=== PATIENT | female | born 1960 | race American Indian/Alaskan Native ===

== ENCOUNTER 2021-03-28 10:39 | Emergency (ER) | payer SELFPAY ==
--- NOTE | 2021-03-28 12:31 | Emergency Department Report ---
<MEDARDO SOMMER - Last Filed: 03/28/21 14:34> ED Female HPI - General Chief complaint: Abdominal Pain Stated complaint: LEFT SIDE PAIN Time Seen by Provider: 03/28/21 12:08 Source: patient Mode of arrival: Ambulatory Limitations: No Limitations - History of Present Illness Initial comments: 60-year-old -[place] female with a history of hypertension that is currently on atenolol, potassium, hydrochlorothiazide and lovastatin presents to the emergency room for 3-week history of left lower abdominal pain more towards her pelvic. Patient states that the pain comes and goes and is worse when she is getting up. She does admit to a slight smell to her urine. She does have a little bit of dysuria but denies any vaginal bleeding or blood in her urine. Patient denies any diarrhea. She has had a partial hysterectomy in 2007 and still has her ovaries. Nothing makes it better. Patient reports she does not have a primary care provider and is followed by [place] [facility]. She states that she is moving her bowels and denies any constipation or diarrhea. MD Complaint: pelvic pain Onset/Timin -: week(s) Location: LLQ Radiation: non-radiating Severity scale (0 -10): 5 Quality: aching Consistency: intermittent Improves with: none Worsens with: other (Getting up) Are you Now?: No Last Menstrual Period: 03/15/08 (Hysterectomy partial) EDC: 12/20/08 Associated Symptoms: dysuria (Slight). denies: vaginal discharge, vaginal bleeding, nausea/vomiting, fever/chills, loss of appetite, hematuria, shortness of breath - Related Data Previous Rx's Medication Instructions Recorded Last Taken Type Ciprofloxacin HCl 500 mg PO BID 7 Days #14 tablet 03/28/21 Unknown Rx Allergies Allergy/AdvReac Type Severity Reaction Status Date / Time No Known Allergies Allergy Unverified 03/28/21 10:57 ED Review of Systems Comment: All other systems reviewed and negative ED Past Medical Hx - Past Medical History Previous Medical History?: Yes Hx Hypertension: Yes - Surgical History Past Surgical History?: No - Medications Home Medications: Home Medications Medication Instructions Recorded Confirmed Last Taken Type Ciprofloxacin HCl 500 mg PO BID 7 Days #14 tablet 03/28/21 Unknown Rx ED Physical Exam - General Limitations: No Limitations General appearance: alert, in no apparent distress - Head Head exam: Present: atraumatic, normocephalic - Eye Eye exam: Present: normal appearance - ENT ENT exam: Present: normal external ear exam - Neck Neck exam: Present: normal inspection, full ROM - Respiratory Respiratory exam: Present: normal lung sounds bilaterally. Absent: respiratory distress, accessory muscle use - Cardiovascular Cardiovascular Exam: Present: regular rate, normal rhythm - GI/Abdominal GI/Abdominal exam: Present: soft, tenderness (With deep palpation to the left lower pelvic), normal bowel sounds. Absent: distended - Rectal Rectal exam: Present: deferred - Extremities Exam Extremities exam: Present: normal inspection, full ROM - Back Exam Back exam: Present: normal inspection, full ROM - Neurological Exam Neurological exam: Present: alert, oriented X3, normal gait - Psychiatric Psychiatric exam: Present: normal affect, normal mood - Skin Skin exam: Present: warm, dry, intact, normal color. Absent: rash ED Disposition Clinical Impression: Left lower quadrant abdominal pain Disposition: - TO HOME OR SELFCARE Is pt being admited?: No Does the pt Need Aspirin: No Condition: Stable Instructions: Urinary Tract Infection, Adult, [id number], Abdominal Pain (ED) Additional Instructions: Labs are stable urinalysis concern for a possible UTI. Will treat with Cipro when she to complete your antibiotics increase your fluid intake. Follow-up with a marketer as well as a [employer]. Prescriptions: Ciprofloxacin HCl 500 mg PO BID 7 Days #14 tablet Referrals: [facility] [Provider Group] - 3-5 Days [facility] [Provider Group] - 3-5 Days Forms: Work/School Release Form(ED) <GISELLE BARTH - Last Filed: 03/28/21 14:58> ED Review of Systems ROS: Stated complaint: LEFT SIDE PAIN Other details as noted in HPI ED Course Vital Signs 03/28/21 10:54 Temperature 98.3 F Pulse Rate 72 Respiratory 18 Rate Blood Pressure 177/102 [Right] O2 Sat by Pulse 96 Oximetry ED Medical Decision Making - Lab Data Result diagrams: 03/28/21 12:57 03/28/21 12:57 Vital Signs 03/28/21 10:54 Temperature 98.3 F Pulse Rate 72 Respiratory 18 Rate Blood Pressure 177/102 [Right] O2 Sat by Pulse 96 Oximetry Lab Results 0703/28/21 03/28/21 Range/Units 12:57 12:57 Unknown WBC 6.7 (4.5-11.0) K/mm3 RBC 5.77 H (3.65-5.03) M/mm3 Hgb 13.5 (10.1-14.3) gm/dl Hct 42.4 (30.3-42.9) % MCV 73 L (79-97) fl MCH 24 L (28-32) pg MCHC 32 (30-34) % RDW 14.8 (13.2-15.2) % Plt Count 189 (140-440) K/mm3 Lymph % (Auto) 31.3 (13.4-35.0) % [place] % (Auto) 4.7 (0.0-7.3) % Eos % (Auto) 1.7 (0.0-4.3) % Baso % (Auto) 0.5 (0.0-1.8) % Lymph # (Auto) 2.1 (1.2-5.4) K/mm3 [place] # (Auto) 0.3 (0.0-0.8) K/mm3 Eos # (Auto) 0.1 (0.0-0.4) K/mm3 Baso # (Auto) 0.0 (0.0-0.1) K/mm3 Seg Neutrophils % 61.8 (40.0-70.0) % Seg Neutrophils # 4.1 (1.8-7.7) K/mm3 Sodium 141 (137-145) mmol/L Potassium 4.1 (3.6-5.0) mmol/L Chloride 100.3 (98-107) mmol/L Carbon Dioxide 28 (22-30) mmol/L Anion Gap 17 mmol/L BUN 14 (7-17) mg/dL Creatinine 0.6 (0.6-1.2) mg/dL Estimated GFR > 60 ml/min BUN/Creatinine Ratio 23 % Glucose 97 (65-100) mg/dL Calcium 9.4 (8.4-10.2) mg/dL Total Bilirubin 0.30 (0.1-1.2) mg/dL AST 19 (5-40) units/L ALT 20 (7-56) units/L Alkaline Phosphatase 88 (35-129) units/L Total Protein 7.8 (6.3-8.2) g/dL Albumin 4.4 (3.9-5) g/dL Albumin/Globulin Ratio 1.3 % Lipase 31 (13-60) units/L Urine Color Yellow (Yellow) Urine Turbidity Cloudy (Clear) Urine pH 5.0 (5.0-7.0) Ur Specific [place] 1.027 (1.003-1.030) Urine Protein 30 mg/dl (Negative) mg/dL Urine Glucose (UA) Neg (Negative) mg/dL Urine Ketones Neg (Negative) mg/dL Urine Blood Neg (Negative) Urine Nitrite Neg (Negative) Urine Bilirubin Neg (Negative) Urine Urobilinogen < 2.0 (<2.0) mg/dL Ur Leukocyte Esterase Lg (Negative) Urine WBC (Auto) 5.0 (0.0-6.0) /HPF Urine RBC (Auto) 29.0 (0.0-6.0) /HPF U Epithel Cells (Auto) 12.0 (0-13.0) /HPF Urine Bacteria (Auto) 1+ (Negative) /HPF Urine Mucus Few /HPF Critical care attestation.: If time is entered above; I have spent that time in minutes in the direct care of this critically ill patient, excluding procedure time. ED Disposition Is pt being admited?: No Does the pt Need Aspirin: No
[2021-03-28 13:03] LABS: Bacteria,Urine 1+ /HPF (Negative); Bilirubin,Urine NEG (Negative); Blood,Urine NEG (Negative); Color,Urine Yellow (Yellow); Mucus,Urine FEW /HPF; Urobilinogen,Urine < 2.0 mg/dL (<2.0)
[2021-03-28 13:57] LABS: Basophils % (Auto) 0.5 % (0.0-1.8); Eosinophils # (Auto) 0.1 K/mm3 (0.0-0.4); Eosinophils % (Auto) 1.7 % (0.0-4.3); Hematocrit 42.4 % (30.3-42.9); Hemoglobin 13.5 gm/dl (10.1-14.3); Lymphocytes # (Auto) 2.1 K/mm3 (1.2-5.4); Lymphocytes % (Auto) 31.3 % (13.4-35.0); Mean Corpuscular HGB Conc 32 % (30-34); Mean Corpuscular Volume 73 fl (79-97); Monocytes # (Auto) 0.3 K/mm3 (0.0-0.8); Monocytes % (Auto) 4.7 % (0.0-7.3); Platelet Count 189 K/mm3 (140-440); Red Blood Count 5.77 M/mm3 (3.65-5.03); Red Cell Distribution Width 14.8 % (13.2-15.2)
[2021-03-28 14:04] LABS: Alanine Aminotransferase 20 units/L (7-56); Albumin 4.4 g/dL (3.9-5); Blood Urea Nitrogen 14 mg/dL (7-17); Calcium 9.4 mg/dL (8.4-10.2); Hemolysis Index 5
[2021-03-28 14:12] LABS: BUN/Creatinine Ratio 23
[2021-03-28 15:30] VITALS: BP 168/99
== END 2021-03-28 15:46 | disposition home or self-care (01) ==
LOC: ED 10:39
DX: R10.32 Left lower quadrant pain (principal); I10 Essential (primary) hypertension; Z98.890 Other specified postprocedural states; Z79.899 Other long term (current) drug therapy
CPT/HCPCS: 36415; 80053; 81001; 83690; 85025; 99283